=== PATIENT | male | born 1955 | race African-American/Black ===

== ENCOUNTER 2017-04-05 00:36 | Emergency (ER) | payer MEDICAID, OTHER ==
[~2017-04-05] VITALS: Ht 180.3 cm; Wt 80.0 kg
[~2017-04-05 00:36] MED LIST: ASPI-1159 PO; CARV3.1242 PO; CLOP75TA16 PO; FISH PO; FOLI-43 PO; FURO-152 PO; GABA-533 PO; HYDR-519 PO; LISI10TA5 PO; SIMV40TA5 PO
[2017-04-05] MEDS ORDERED: MORPHINE SULFATE 4 MG/ML CPJ (NOT FOR IM USE) IV STA (02:08)
[2017-04-05] MEDS ORDERED: ONDANSETRON HCL 4MG/2ML VIAL IV STA (02:08)
[2017-04-05] MEDS ORDERED: SODIUM CHLORIDE 0.9% 1,000 ML IV ONE (02:08)
[2017-04-05 02:41] LABS: BASOPHILS % 0.8 % (0.0-2.0); EOSINOPHILS % 8.5 % (0.0-5.0); HEMATOCRIT. 42.2 % (42.0-52.0); HEMOGLOBIN. 14.5 g/dL (14.0-18.0); LYMPHOCYTES % 21.1 % (20.0-50.0); MEAN CORPUSCULAR HEMOGLOBIN 33.9 pg (28.0-32.0); MEAN CORPUSCULAR VOLUME 98.6 fL (80.0-94.0); MEAN PLATELET VOLUME 9.1 fl (7.4-10.4); MONOCYTES % 8.9 % (2.0-8.0); NEUTROPHILS % 60.7 % (40.0-76.0); PLATELET 137 x1000/uL (130-400); RED BLOOD CELL COUNT 4.28 mill/uL (4.7-6.1); RED CELL DISTRIBUTION WIDTH 12.3 % (11.6-14.6)
[2017-04-05 02:51] LABS: CARBON DIOXIDE 24 mEq/L (21-32); CHLORIDE 108 mEq/L (98-107)
[2017-04-05] MEDS ORDERED: MORPHINE SULFATE 4 MG/ML CPJ (NOT FOR IM USE) IV ONE (05:30)
[2017-04-05 06:05] VITALS: BP 146/93
== END 2017-04-05 06:43 | disposition home or self-care (01) ==
LOC: ER 00:36
DX: S62.396A Other fracture of fifth metacarpal bone, right hand, initial encounter for closed fracture (principal); S46.812A Strain of other muscles, fascia and tendons at shoulder and upper arm level, left arm, initial encounter; S09.8XXA Other specified injuries of head, initial encounter; M54.5 Low back pain; I10 Essential (primary) hypertension; Z79.82 Long term (current) use of aspirin; Z96.659 Presence of unspecified artificial knee joint; W18.39XA Other fall on same level, initial encounter; Y93.01 Activity, walking, marching and hiking; Y92.098 Other place in other non-institutional residence as the place of occurrence of the external cause; Y99.8 Other external cause status
CPT/HCPCS: 29125; 36415; 70450; 71010; 73080; 73110; 73130; 80048; 85025; 93005; 96361; 96374; 96375; 96376; 99285; J2270; J2405; J7030; Z7610

== ENCOUNTER 2017-06-30 08:34 | Emergency (ER) | payer MEDICAID ==
[~2017-06-30] VITALS: Ht 177.8 cm; Wt 84.8 kg
[2017-06-30 09:14] LABS: BASOPHILS % 0.2 % (0.0-2.0); HEMATOCRIT. 50.6 % (42.0-52.0); HEMOGLOBIN. 16.9 g/dL (14.0-18.0); LYMPHOCYTES % 9.8 % (20.0-50.0); MONOCYTES % 7.6 % (2.0-8.0); NEUTROPHILS % 82.4 % (40.0-76.0); PLATELET 125 x1000/uL (130-400); RED BLOOD CELL COUNT 4.96 mill/uL (4.7-6.1); RED CELL DISTRIBUTION WIDTH 13.2 % (11.6-14.6)
[2017-06-30 09:15] LABS: PROTHROMBIN TIME 10.5 sec (9.4-11.6)
[2017-06-30 09:25] LABS: CARBON DIOXIDE 26 mEq/L (21-32); CHLORIDE 106 mEq/L (98-107); ETHANOL BLOOD 225 mg/dL; TROPONIN I 0.04 ng/mL (0.00-0.04)
[2017-06-30 10:16] LABS: GLUCOSE URINE NEGATIVE (NEGATIVE); KETONES URINE NEGATIVE (NEGATIVE); LEUKOCYTE ESTERASE URINE NEGATIVE (NEGATIVE); NITRITE URINE NEGATIVE (NEGATIVE); OCCULT BLOOD URINE NEGATIVE (NEGATIVE); PH URINE 5.5 (4.5-8.0); PROTEIN URINE NEGATIVE (NEGATIVE); SPECIFIC GRAVITY URINE 1.058 (1.005-1.030); UROBILINOGEN URINE 0.2 E.U./dL (0.2-1.0)
[2017-06-30 10:19] LABS: CLARITY URINE CLEAR (CLEAR); COLOR URINE YELLOW (YELLOW)
[2017-06-30] MEDS ORDERED: SODIUM CHLORIDE 0.9% 10ML VIAL ONE (10:30)
[2017-06-30] MEDS ORDERED: IOHEXOL-350 100 ML BOTTLE ONE (10:30)
[2017-06-30 10:45] LABS: *AMPHETAMINES SCREEN URINE NEGATIVE (NEGATIVE); *BARBITURATES SCREEN URINE NEGATIVE (NEGATIVE); *BENZODIAZEPINES SCREEN URINE NEGATIVE (NEGATIVE); *COCAINE SCREEN URINE NEGATIVE (NEGATIVE); CANNABINOID URINE SCREEN PRESUMTIVE POSITIVE (NEGATIVE); METHADONE URINE SCREEN NEGATIVE (NEGATIVE); OPIATES URINE SCREEN PRESUMTIVE POSITIVE (NEGATIVE); PHENCYCLIDINE URINE SCREEN NEGATIVE (NEGATIVE)
[2017-06-30 11:32] VITALS: BP 169/99
== END 2017-06-30 11:32 | disposition home or self-care (01) ==
LOC: ER 08:38
DX: F19.10 Other psychoactive substance abuse, uncomplicated (principal); F10.129 Alcohol abuse with intoxication, unspecified; R56.9 Unspecified convulsions; I10 Essential (primary) hypertension; I25.2 Old myocardial infarction; Z79.82 Long term (current) use of aspirin; Z86.73 Personal history of transient ischemic attack (TIA), and cerebral infarction without residual deficits; Z96.659 Presence of unspecified artificial knee joint; Y90.7 Blood alcohol level of 200-239 mg/100 ml
CPT/HCPCS: 36415; 70450; 70496; 70498; 71010; 80053; 80305; 81003; 82962; 84484; 85025; 85610; 93005; 99285; A4216; G0482; Q9967; Z7610

== ENCOUNTER 2019-10-02 23:40 | Inpatient (IN) | payer MEDICAID, OTHER ==
[~2019-10-02] VITALS: Ht 177.8 cm; Wt 64.0 kg
[~2019-10-02 23:40] MED LIST changes: -ASPI-1159 PO; +ASPI-1497 PO; -CLOP75TA16 PO; +CLOP75TA4 PO; -GABA-533 PO; +SIMV-46 PO; -SIMV40TA5 PO
[2019-10-03] MEDS ORDERED: TETANUS, DIPHTHERIA, PERTUSSIS VAC/PF 0.5ML (>7YR OLD) IM ONE (00:45)
[2019-10-03] MEDS ORDERED: HYDROCODONE/ACETAMINOPHEN 10/325MG TABLET PO ONE (01:00)
[2019-10-03 01:08] LABS: BASOPHILS % 0.9 % (0.0-2.0); EOSINOPHILS % 3.8 % (0.0-5.0); HEMATOCRIT. 42.8 % (42.0-52.0); HEMOGLOBIN. 14.7 g/dL (14.0-18.0); LYMPHOCYTES % 16.6 % (20.0-50.0); MEAN CORPUSCULAR HEMOGLOBIN 34.3 pg (28.0-32.0); MEAN CORPUSCULAR VOLUME 99.9 fL (80.0-94.0); MEAN PLATELET VOLUME 9.3 fl (7.4-10.4); MONOCYTES % 10.9 % (2.0-8.0); NEUTROPHILS % 67.8 % (40.0-76.0); PLATELET 131 x1000/uL (130-400); RED BLOOD CELL COUNT 4.28 mill/uL (4.7-6.1); RED CELL DISTRIBUTION WIDTH 13.4 % (11.6-14.6)
[2019-10-03 01:10] LABS: CHLORIDE 103 mEq/L (98-107)
[2019-10-03 01:14] LABS: ETHANOL BLOOD 122 mg/dL
[2019-10-03 01:15] LABS: INR 0.9; PROTHROMBIN TIME 10.3 sec (9.6-11.0)
[2019-10-03] MEDS ORDERED: ASPIRIN 325MG EC TABLET PO ONE (06:00)
[2019-10-03] MEDS ORDERED: ONDANSETRON HCL 4MG/2ML INJ IV ONE (07:15)
[2019-10-03] MEDS ORDERED: MORPHINE SULFATE 4 MG/ML CPJ (NOT FOR IM USE) IV ONE (07:15)
[2019-10-03] MEDS ORDERED: NITROGLYCERIN OINT 1GM/INCH UDPKT TD ONE (07:15)
[2019-10-03 09:20] VITALS: BP 124/76
[2019-10-03] MEDS ORDERED: GUAIFENESIN 200MG/10ML SUGAR FREE UDC PO PRN (09:45)
[2019-10-03] MEDS ORDERED: MAGNESIUM/ALUMINUM HYDROXIDE/SIMETHICONE 30ML UDC PO PRN (09:45)
[2019-10-03] MEDS ORDERED: CLONIDINE 0.1MG TABLET PO PRN (09:45)
[2019-10-03] MEDS ORDERED: ACETAMINOPHEN 325MG TABLET PO PRN (09:45)
[2019-10-03] MEDS ORDERED: ONDANSETRON HCL 4MG/2ML INJ IV PRN (09:45)
[2019-10-03 10:30] VITALS: BP 124/76
[2019-10-03] MEDS: FOLIC ACID/VITAMIN B COMP W-C TABLET PO SCH (11:19)
[2019-10-03] MEDS: CLOPIDOGREL 75MG TABLET PO SCH (11:19)
[2019-10-03] MEDS: LISINOPRIL 5MG TABLET PO SCH (11:19)
[2019-10-03] MEDS: FUROSEMIDE 20MG TABLET PO SCH (11:19)
[2019-10-03] MEDS: CARVEDILOL 3.125 MG TABLET PO SCH ×2 (11:20→21:11)
[2019-10-03 12:00] VITALS: BP 120/76
[2019-10-03 15:33] LABS: CLARITY URINE CLEAR (CLEAR); COLOR URINE YELLOW (YELLOW); KETONES URINE TRACE (NEGATIVE); LEUKOCYTE ESTERASE URINE NEGATIVE (NEGATIVE); NITRITE URINE NEGATIVE (NEGATIVE); OCCULT BLOOD URINE NEGATIVE (NEGATIVE); PH URINE 5.5 (4.5-8.0); PROTEIN URINE NEGATIVE (NEGATIVE); SPECIFIC GRAVITY URINE 1.011 (1.005-1.030); UROBILINOGEN URINE 0.2 E.U./dL (0.2-1.0)
[2019-10-03 16:00] VITALS: BP 123/84
[2019-10-03 16:06] LABS: *AMPHETAMINES SCREEN URINE NEGATIVE (NEGATIVE); *BARBITURATES SCREEN URINE NEGATIVE (NEGATIVE)
[2019-10-03 16:07] LABS: *BENZODIAZEPINES SCREEN URINE NEGATIVE (NEGATIVE); *COCAINE SCREEN URINE NEGATIVE (NEGATIVE); METHADONE URINE SCREEN NEGATIVE (NEGATIVE)
[2019-10-03 16:08] LABS: CANNABINOID URINE SCREEN PRESUMTIVE POSITIVE (NEGATIVE)
[2019-10-03 16:14] LABS: PHENCYCLIDINE URINE SCREEN NEGATIVE (NEGATIVE)
[2019-10-03] MEDS: HYDROCODONE/ACETAMINOPHEN 5/325MG TABLET PO PRN (18:57)
[2019-10-03 20:00] VITALS: BP 131/89
[2019-10-03] MEDS ORDERED: ATORVASTATIN CALCIUM 40MG TABLET PO SCH (21:00)
[2019-10-03 23:59] VITALS: BP 105/72
[2019-10-04 00:27] LABS: CREATINE KINASE MB FRACTION 3.4 ng/mL (0.5-3.6)
[2019-10-04 04:26] VITALS: BP 128/80
[2019-10-04] MEDS: DOCUSATE SODIUM 100MG CAPSULE PO PRN ×2 (04:46→09:56)
[2019-10-04 07:24] LABS: BASOPHILS % 0.4 % (0.0-2.0); EOSINOPHILS % 7.3 % (0.0-5.0); HEMATOCRIT. 39.8 % (42.0-52.0); HEMOGLOBIN. 13.8 g/dL (14.0-18.0); LYMPHOCYTES % 18.5 % (20.0-50.0); MEAN CORPUSCULAR HEMOGLOBIN 34.6 pg (28.0-32.0); MEAN CORPUSCULAR VOLUME 99.8 fL (80.0-94.0); MEAN PLATELET VOLUME 9.4 fl (7.4-10.4); MONOCYTES % 9.9 % (2.0-8.0); NEUTROPHILS % 63.9 % (40.0-76.0); PLATELET 115 x1000/uL (130-400); RED BLOOD CELL COUNT 3.99 mill/uL (4.7-6.1); RED CELL DISTRIBUTION WIDTH 13.3 % (11.6-14.6)
[2019-10-04 07:38] LABS: CHLORIDE 103 mEq/L (98-107)
[2019-10-04 08:00] VITALS: BP 141/96
[2019-10-04] MEDS: LISINOPRIL 5MG TABLET PO SCH (09:50)
[2019-10-04] MEDS: CLOPIDOGREL 75MG TABLET PO SCH (09:51)
[2019-10-04] MEDS: FOLIC ACID/VITAMIN B COMP W-C TABLET PO SCH (09:51)
[2019-10-04] MEDS: FUROSEMIDE 20MG TABLET PO SCH (09:51)
[2019-10-04] MEDS: CARVEDILOL 3.125 MG TABLET PO SCH (09:51)
[2019-10-04] MEDS: HYDROCODONE/ACETAMINOPHEN 5/325MG TABLET PO PRN (09:57)
[2019-10-04 12:00] VITALS: BP 149/93
[2019-10-04 12:55] VITALS: BP 149/93
[2019-10-06 16:56] LABS: OPIATES URINE SCREEN PRESUMTIVE POSITIVE (NEGATIVE)
== END 2019-10-04 14:45 | disposition home or self-care (01) | DRG 384 ==
LOC: ER 23:40 → 6WST 10-03 07:03 → EDBEDREQ 10-03 07:25 → EDBEDREQTM 10-03 07:25 → ENRESERV 10-03 08:07
PROVIDERS: ADMIT Hospitalist; ATTEND Hospitalist
DX: S70.01XA Contusion of right hip, initial encounter (principal); E78.5 Hyperlipidemia, unspecified; R07.89 Other chest pain; F10.129 Alcohol abuse with intoxication, unspecified; I10 Essential (primary) hypertension; I25.10 Atherosclerotic heart disease of native coronary artery without angina pectoris; W18.30XA Fall on same level, unspecified, initial encounter; F17.210 Nicotine dependence, cigarettes, uncomplicated; Z96.659 Presence of unspecified artificial knee joint; Z79.899 Other long term (current) drug therapy; I25.2 Old myocardial infarction; Z79.02 Long term (current) use of antithrombotics/antiplatelets; Z86.73 Personal history of transient ischemic attack (TIA), and cerebral infarction without residual deficits; Z79.82 Long term (current) use of aspirin; Y93.89 Activity, other specified; Y92.89 Other specified places as the place of occurrence of the external cause; Y99.8 Other external cause status
CPT/HCPCS: 36415; 71045; 72170; 72192; 80053; 80305; 80320; 81003; 82550; 82553; 84484; 85025; 90715; 93005; 93306; 93970; 99285; J2270; J2405; G0480

== ENCOUNTER 2020-03-04 01:37 | Emergency (ER) | payer MEDICAID ==
[~2020-03-04] VITALS: Ht 182.9 cm; Wt 87.0 kg
[2020-03-04 02:48] LABS: BASOPHILS % 0.9 % (0.0-2.0); EOSINOPHILS % 8.3 % (0.0-5.0); HEMATOCRIT. 45.8 % (42.0-52.0); HEMOGLOBIN. 15.3 g/dL (14.0-18.0); LYMPHOCYTES % 37.6 % (20.0-50.0); MEAN CORPUSCULAR HEMOGLOBIN 33.9 pg (28.0-32.0); MEAN CORPUSCULAR VOLUME 101.1 fL (80.0-94.0); MEAN PLATELET VOLUME 8.6 fl (7.4-10.4); NEUTROPHILS % 43.2 % (40.0-76.0); PLATELET 128 x1000/uL (130-400); RED BLOOD CELL COUNT 4.53 mill/uL (4.7-6.1); RED CELL DISTRIBUTION WIDTH 12.7 % (11.6-14.6)
[2020-03-04 02:54] LABS: CHLORIDE 112 mEq/L (98-107)
[2020-03-04 02:58] LABS: ETHANOL BLOOD 292 mg/dL
[2020-03-04 08:44] VITALS: BP 120/77
== END 2020-03-04 08:45 | disposition home or self-care (01) ==
LOC: ER 01:37
DX: F10.129 Alcohol abuse with intoxication, unspecified (principal); R07.89 Other chest pain; Y90.8 Blood alcohol level of 240 mg/100 ml or more; R03.0 Elevated blood-pressure reading, without diagnosis of hypertension; I51.9 Heart disease, unspecified
CPT/HCPCS: 36415; 71045; 80053; 80320; 83880; 84484; 85025; 93005; 99285; G0480

== ENCOUNTER 2021-11-16 16:26 | Emergency (ER) | payer MEDICARE, OTHER ==
[~2021-11-16] VITALS: Ht 180.3 cm; Wt 67.0 kg
[~2021-11-16 16:26] MED LIST changes: +CLOP-31 PO; -CLOP75TA4 PO; +LISI10TA26 PO; -LISI10TA5 PO
[2021-11-16 17:07] LABS: BASOPHILS % 1.1 % (0.0-2.0); EOSINOPHILS % 9.4 % (0.0-5.0); HEMATOCRIT. 42.6 % (42.0-52.0); HEMOGLOBIN. 14.5 g/dL (14.0-18.0); LYMPHOCYTES % 32.2 % (20.0-50.0); MEAN CORPUSCULAR HEMOGLOBIN 33.3 pg (28.0-32.0); MEAN CORPUSCULAR VOLUME 97.9 fL (80.0-94.0); MEAN PLATELET VOLUME 8.8 fl (7.4-10.4); MONOCYTES % 11.7 % (2.0-8.0); NEUTROPHILS % 45.6 % (40.0-76.0); PLATELET 125 x1000/uL (130-400); RED BLOOD CELL COUNT 4.35 mill/uL (4.7-6.1); RED CELL DISTRIBUTION WIDTH 12.6 % (11.6-14.6)
[2021-11-16 17:10] LABS: CHLORIDE 108 mEq/L (98-107)
[2021-11-16 17:15] LABS: ETHANOL BLOOD < 10 mg/dL
[2021-11-16] MEDS ORDERED: AMOX-424 MT (18:42)
[2021-11-16] MEDS ORDERED: IBUP-2028 MT (18:42)
[2021-11-16 19:23] VITALS: BP 159/105
== END 2021-11-16 19:28 | disposition home or self-care (01) ==
LOC: ER 16:26
DX: H66.92 Otitis media, unspecified, left ear (principal); R07.89 Other chest pain; I11.9 Hypertensive heart disease without heart failure; R94.31 Abnormal electrocardiogram [ECG] [EKG]; E78.00 Pure hypercholesterolemia, unspecified; I25.2 Old myocardial infarction; Z86.73 Personal history of transient ischemic attack (TIA), and cerebral infarction without residual deficits
CPT/HCPCS: 36415; 71045; 80053; 80320; 83880; 84484; 85025; 93005; 99285; G0480

== ENCOUNTER 2022-08-26 12:53 | Inpatient (IN) | payer MEDICARE, OTHER ==
[~2022-08-26] VITALS: Ht 180.3 cm; Wt 66.7 kg
[~2022-08-26 12:53] MED LIST changes: +AMOX-424 MT; +DOCU-138 MT; +IBUP-2028 MT; +PROT40 MT
[2022-08-26] MEDS ORDERED: ASPIRIN 81MG TABLET PO ONE (13:45)
[2022-08-26 16:03] LABS: BASOPHILS % 0.5 % (0.0-2.0); EOSINOPHILS % 6.6 % (0.0-5.0); HEMATOCRIT. 44.1 % (42.0-52.0); HEMOGLOBIN. 15.1 g/dL (14.0-18.0); LYMPHOCYTES % 24.4 % (20.0-50.0); MEAN CORPUSCULAR VOLUME 98.9 fL (80.0-94.0); MONOCYTES % 12.2 % (2.0-8.0); NEUTROPHILS % 56.3 % (40.0-76.0); RED BLOOD CELL COUNT 4.46 mill/uL (4.7-6.1); RED CELL DISTRIBUTION WIDTH 12.9 % (11.6-14.6)
[2022-08-26 16:08] LABS: CHLORIDE 103 mEq/L (98-107)
[2022-08-26 16:17] LABS: D-DIMER 0.38 mg/L FEU (<0.50); PARTIAL THROMBOPLASTIN TIME 27.7 sec (23.4-31.0); PROTHROMBIN TIME 10.9 sec (9.6-11.0)
[2022-08-26 17:05] LABS: MEAN PLATELET VOLUME 8.8 fl (7.4-10.4); PLATELET 112 x1000/uL (130-400)
[2022-08-26] MEDS ORDERED: ASPIRIN 81MG TABLET PO NR (17:45)
[2022-08-26] MEDS: NITROGLYCERIN 0.4MG TABLET SL SL PRN (17:55)
[2022-08-26] MEDS ORDERED: DIPHENHYDRAMINE 50MG/ML VIAL IV PRN (21:45)
[2022-08-26] MEDS ORDERED: ONDANSETRON HCL 4MG/2ML INJ IV PRN (21:45)
[2022-08-26] MEDS ORDERED: LORAZEPAM 2MG/ML CPJ IV PRN (21:45)
[2022-08-26] MEDS ORDERED: IPRATROPIUM/ALBUTEROL 0.5-3(2.5)MG/3ML NEB NEB PRN (21:45)
[2022-08-26] MEDS ORDERED: DOCUSATE SODIUM 100MG CAPSULE PO PRN (21:45)
[2022-08-26] MEDS ORDERED: NA PHOS,M-B/NA PHOS,DI-BA ENEMA 118ML PR PRN (21:45)
[2022-08-26] MEDS ORDERED: GUAIFENESIN 200MG/10ML SUGAR FREE UDC PO PRN (21:45)
[2022-08-26] MEDS ORDERED: MAGNESIUM/ALUMINUM HYDROXIDE/SIMETHICONE 30ML UDC PO PRN (21:45)
[2022-08-26] MEDS ORDERED: ACETAMINOPHEN 325MG TABLET PO PRN (21:45)
[2022-08-26] MEDS ORDERED: NALOXONE HCL 0.4MG/ML VIAL IV PRN (22:15)
[2022-08-26] MEDS: ENOXAPARIN 40MG/0.4ML SYR SUBCUT SCH (22:46)
[2022-08-26 23:05] LABS: CHLORIDE 102 mEq/L (98-107)
[2022-08-27] MEDS ORDERED: IPRATROPIUM BROMIDE (0.02%) 0.5MG/2.5ML NEB HHN PRN (00:45)
[2022-08-27] MEDS ORDERED: ALBUTEROL (0.083%) 2.5MG/3ML NEB HHN PRN (00:45)
[2022-08-27] MEDS: NITROGLYCERIN 0.4MG TABLET SL SL PRN (01:07)
[2022-08-27 02:00] VITALS: BP 146/93
[2022-08-27 04:00] VITALS: BP 131/80
[2022-08-27 07:53] LABS: CHLORIDE 103 mEq/L (98-107)
[2022-08-27 08:00] VITALS: BP 160/102
[2022-08-27] MEDS: CLONIDINE 0.1MG TABLET PO PRN (09:09)
[2022-08-27] MEDS: ASPIRIN 81MG EC TABLET PO SCH (09:10)
[2022-08-27] MEDS: HYDROCODONE/ACETAMINOPHEN 10/325MG TABLET PO PRN (09:15)
[2022-08-27] MEDS ORDERED: PNEUMOCOCCAL 23-VAL P-SAC VAC 0.5 ML IM ONE (11:00)
[2022-08-27 12:00] VITALS: BP 121/81
[2022-08-27] MEDS ORDERED: IBUPROFEN 600MG TABLET PO PRN (15:30)
[2022-08-27] MEDS: METOPROLOL TARTRATE 50MG TABLET PO SCH ×2 (15:59→20:57)
[2022-08-27 16:00] VITALS: BP 143/95
[2022-08-27 20:00] VITALS: BP 128/82
[2022-08-27] MEDS: ENOXAPARIN 40MG/0.4ML SYR SUBCUT SCH (20:58)
[2022-08-28] VITALS: BP 131/91
[2022-08-28] MEDS: HYDROCODONE/ACETAMINOPHEN 10/325MG TABLET PO PRN ×2 (03:51→20:51)
[2022-08-28 04:00] VITALS: BP 138/89
[2022-08-28 06:16] LABS: BASOPHILS % 0.5 % (0.0-2.0); HEMATOCRIT. 37.4 % (42.0-52.0); LYMPHOCYTES % 37.8 % (20.0-50.0); MEAN CORPUSCULAR HEMOGLOBIN 34.2 pg (28.0-32.0); MEAN CORPUSCULAR VOLUME 98.1 fL (80.0-94.0); MEAN PLATELET VOLUME 9.5 fl (7.4-10.4); MONOCYTES % 13.2 % (2.0-8.0); NEUTROPHILS % 37.5 % (40.0-76.0); PLATELET 98 x1000/uL (130-400); RED BLOOD CELL COUNT 3.81 mill/uL (4.7-6.1); RED CELL DISTRIBUTION WIDTH 12.9 % (11.6-14.6)
[2022-08-28 07:18] LABS: CHLORIDE 104 mEq/L (98-107)
[2022-08-28 07:30] LABS: PHOSPHORUS 2.7 mg/dL (2.5-4.9)
[2022-08-28 08:00] VITALS: BP 157/99
[2022-08-28] MEDS ORDERED: METOPROLOL TARTRATE 5MG/5ML VIAL IV PRN (08:00)
[2022-08-28] MEDS: METOPROLOL TARTRATE 50MG TABLET PO SCH ×2 (08:49→20:51)
[2022-08-28] MEDS: ASPIRIN 81MG EC TABLET PO SCH (08:49)
[2022-08-28] MEDS ORDERED: IOHEXOL-350 100 ML BOTTLE ONE (09:47)
[2022-08-28] MEDS: NITROGLYCERIN SPRAY/4.9GM CAN TL SCH (10:25)
[2022-08-28 12:00] VITALS: BP 104/74
[2022-08-28 16:00] VITALS: BP 168/103
[2022-08-28] MEDS: CLONIDINE 0.1MG TABLET PO PRN (16:56)
[2022-08-28 20:00] VITALS: BP 135/91
[2022-08-29] VITALS: BP 155/99
[2022-08-29 04:00] VITALS: BP 146/96
[2022-08-29] MEDS ORDERED: GADOTERATE MEGLUMINE 5 MMOL/10 ML VIAL IV ONE (07:48)
[2022-08-29 08:00] VITALS: BP 177/95
[2022-08-29] MEDS: METOPROLOL TARTRATE 50MG TABLET PO SCH (08:27)
[2022-08-29] MEDS: CLONIDINE 0.1MG TABLET PO PRN (08:27)
[2022-08-29] MEDS: ASPIRIN 81MG EC TABLET PO SCH (08:28)
[2022-08-29] MEDS ORDERED: HEPARIN 1000 UNITS/ML 10ML ONE (09:21)
[2022-08-29] MEDS ORDERED: LIDOCAINE HCL/PF 2% 20MG/ML 5 ML/VIAL ONE (09:21)
[2022-08-29] MEDS ORDERED: IODIXANOL 320MG/ML 100 ML BOTTLE IV ONE (09:21)
[2022-08-29 09:30] VITALS: BP 148/100
[2022-08-29 12:00] VITALS: BP 144/95
[2022-08-29] MEDS ORDERED: DIPHENHYDRAMINE 50MG/ML VIAL ONE (13:43)
[2022-08-29] MEDS ORDERED: FENTANYL CITRATE/PF 50MCG/ML 2ML VIAL ONE (13:43)
[2022-08-29] MEDS ORDERED: MIDAZOLAM HCL 2 MG/2 ML VIAL ONE (13:43)
[2022-08-29] MEDS ORDERED: VERAPAMIL HCL 2.5 MG/1 ML 2ML VIAL IV ONE (13:45)
[2022-08-29] MEDS ORDERED: NICARDIPINE 100MCG/ML 10ML VIAL (CATH LAB) IV ONE (14:35)
[2022-08-29] MEDS ORDERED: NITROGLYCERIN 50MCG/ML 10ML VIAL (CATH LAB) IV ONE (14:35)
[2022-08-29] MEDS ORDERED: SODIUM CHLORIDE 0.45% 500 ML IV SCH (14:45)
[2022-08-29] MEDS ORDERED: ATROPINE SULFATE 1MG/10ML SYR IV PRN (14:45)
[2022-08-29] MEDS ORDERED: GABA-532 MT (16:34)
[2022-08-29 18:10] VITALS: BP 140/90
== END 2022-08-29 20:57 | disposition home or self-care (01) | DRG 48 ==
LOC: ER 12:53 → MICUSO 19:00 → 7WST 08-27 00:29
PROVIDERS: ADMIT Internal Medicine; ATTEND Internal Medicine
PROC: 4A023N7 Measurement of Cardiac Sampling and Pressure, Left Heart, Percutaneous Approach (ICD-10-PCS; principal; 2022-08-29)
PROC: B211YZZ Fluoroscopy of Multiple Coronary Arteries using Other Contrast (ICD-10-PCS; 2022-08-29)
DX: G56.81 Other specified mononeuropathies of right upper limb (principal); I25.110 Atherosclerotic heart disease of native coronary artery with unstable angina pectoris; E78.00 Pure hypercholesterolemia, unspecified; I10 Essential (primary) hypertension; K21.9 Gastro-esophageal reflux disease without esophagitis; Z20.822 Contact with and (suspected) exposure to COVID-19; E78.5 Hyperlipidemia, unspecified; F17.210 Nicotine dependence, cigarettes, uncomplicated; F10.10 Alcohol abuse, uncomplicated; F14.90 Cocaine use, unspecified, uncomplicated; Z79.899 Other long term (current) drug therapy; Z86.73 Personal history of transient ischemic attack (TIA), and cerebral infarction without residual deficits; Z95.5 Presence of coronary angioplasty implant and graft; M48.02 Spinal stenosis, cervical region
CPT/HCPCS: 36415; 71045; 72156; 75571; 80048; 80053; 82962; 83735; 83880; 84100; 84484; 85025; 85379; 86850; 86900; 87426; 90732; 93005; 93458; 97162; 97166; 99291; A9577; C1769; C1887; C1893; J1200; J1644; J1650; J2250; J3010; J3490; Q9967

== ENCOUNTER → 2022-12-20 | Outpatient (CLI) | payer MEDICARE, OTHER ==
[~2022-12-20] MED LIST changes: -AMOX-424 MT; +ATOR10TA69 PO; +GABA-532 MT; +HYDR-4001 PO; +SACU1TAB PO
== END | disposition home or self-care (01) ==
LOC: RAD 11:43
PROVIDERS: ATTEND Specialist
DX: J98.11 Atelectasis (principal); J98.6 Disorders of diaphragm
CPT/HCPCS: 71046

== ENCOUNTER → 2024-09-09 | Outpatient (CLI) | payer MEDICARE, MEDICAID ==
[~2024-09-09] MED LIST changes: +GABA-1180 MT; -GABA-532 MT; -HYDR-4001 PO; -IBUP-2028 MT; -LISI10TA26 PO; -PROT40 MT; -SIMV-46 PO
== END | disposition home or self-care (01) ==
LOC: CT 10:26
PROVIDERS: ATTEND Internal Medicine Critical Care Medicine
DX: S02.831A Fracture of medial orbital wall, right side, initial encounter for closed fracture (principal); J32.4 Chronic pansinusitis; N35.911 Unspecified urethral stricture, male, meatal; X58.XXXA Exposure to other specified factors, initial encounter; Y93.89 Activity, other specified; Y92.89 Other specified places as the place of occurrence of the external cause; Y99.8 Other external cause status
CPT/HCPCS: 70486